=== PATIENT | female | born 1955 | race Two or more races ===

== ENCOUNTER 2017-11-14 17:58 | Emergency (ER) | payer BC ==
[~2017-11-14] VITALS: Ht 157.5 cm; Wt 72.6 kg
--- NOTE | 2017-11-14 19:07 | NUR ---
Received SBAR report from Parker Murcia LVN.
--- NOTE | 2017-11-14 19:40 | NUR ---
Dr. Tritsan at bedside for MSE.
[2017-11-14] MEDS ORDERED: CLINDAMYCIN HCL 150 MG CAPSULE PO ONE (20:00)
[2017-11-14] MEDS ORDERED: CLINDAMYCIN HCL 300 MG CAPSULE ONE (20:01)
--- NOTE | 2017-11-14 20:05 | NUR ---
Patient discharged to home in stable conditon. Written and verbal after care instructions given. Patient verbalizes understanding of instructions. Patient ambulated out of ER with steady gait, no acute signs of distress, VSS, all belongings taken.
[2017-11-14 20:06] VITALS: BP 112/68
== END 2017-11-14 20:07 | disposition home or self-care (01) ==
LOC: ER 18:00
DX: S61.211A Laceration without foreign body of left index finger without damage to nail, initial encounter (principal); L08.9 Local infection of the skin and subcutaneous tissue, unspecified; Z88.1 Allergy status to other antibiotic agents; X58.XXXA Exposure to other specified factors, initial encounter; Y93.89 Activity, other specified; Y92.89 Other specified places as the place of occurrence of the external cause; Y99.8 Other external cause status
CPT/HCPCS: A4663

== ENCOUNTER 2017-11-17 18:54 | Emergency (ER) | payer BC ==
[~2017-11-17] VITALS: Ht 165.1 cm; Wt 68.0 kg
--- NOTE | 2017-11-17 19:20 | NUR ---
DR CARLSON INTO EVAL PATIENT.
--- NOTE | 2017-11-17 19:22 | NUR ---
PATIENT HERE FOR RE EVAL OF LEFT MIDDLE FINGER WOUND CHECK. PER PATIENT WOUND IS HEALING
--- NOTE | 2017-11-17 19:31 | NUR ---
Patient discharged to home in stable conditon. Written and verbal after care instructions given. Patient verbalizes understanding of instructions. WALKED OUT OF ER WITH NO DISTRESS NOTED
== END 2017-11-17 19:41 | disposition home or self-care (01) ==
LOC: ER 18:54
DX: L08.9 Local infection of the skin and subcutaneous tissue, unspecified (principal); Z88.1 Allergy status to other antibiotic agents
CPT/HCPCS: A4663